=== PATIENT | female | born 1940 | race Hispanic/Latino ===

== ENCOUNTER 2018-07-07 17:03 | Emergency (ER) | payer BC ==
[2018-07-07 17:04] VITALS: BMI 31.8
[2018-07-07 17:50] VITALS: RESP 18; TEMP 97.8
--- NOTE | 2018-07-07 18:24 | ED PDOC ---
Arrival/HPI - General Chief Complaint: Lower Extremity Problem/Injury Time Seen by Provider: 07/07/18 18:21 Historian: Patient - History of Present Illness Narrative History of Present Illness (Text): 07/07/18 18:22 77 f with hx htn and hld presents to the ED with acute bleeding of the left lower anterior leg after sustaining a scratch. Patient reports that the blood was "squirting" and she has experienced something similar in the past. Patient denies any other injury. Event occurred today at approx 430p. Past Medical History - Provider Review Nursing Documentation Reviewed: Yes - Infectious Disease Hx of Infectious Diseases: None - Cardiac Hx Cardiac Disorders: Yes Hx Hypertension: Yes - Pulmonary Hx Respiratory Disorders: No - Neurological Hx Neurological Disorder: No - HEENT Hx HEENT Disorder: No - Renal Hx Renal Disorder: No - Endocrine/Metabolic Hx Endocrine Disorders: No - Hematological/Oncological Hx Blood Disorders: No - Integumentary Hx Dermatological Disorder: No - Musculoskeletal/Rheumatological Hx Musculoskeletal Disorders: Yes - Gastrointestinal Hx Gastrointestinal Disorders: No - Genitourinary/Gynecological Hx Genitourinary Disorders: No - Psychiatric Hx Psychophysiologic Disorder: No Hx Physical Abuse: No Hx Substance Use: No - Anesthesia Hx Anesthesia Reactions: No Hx Malignant Hyperthermia: No - Suicidal Assessment Feels Threatened In Home Enviroment: No Family/Social History - Physician Review Nursing Documentation Reviewed: Yes Family/Social History: No Known Family HX Smoking Status: Never Smoked Hx Alcohol Use: No Hx Substance Use: No Allergies/Home Meds Allergies/Adverse Reactions: Allergies No Known Allergies Allergy (Verified 07/07/18 17:43) Home Medications: Home Meds Medication Instructions Recorded Confirmed No Known Home Med 10/17/15 10/18/15 Review of Systems - Physician Review All systems were reviewed & negative as marked: Yes - Review of Systems Constitutional: absent: Other (no other notable injuries) Skin: Other (+ bleeding) Physical Exam - Physical Exam Narrative Physical Exam (Text): 07/07/18 18:24 Gen: VS reviewed, alert, well developed, well nourished, nontoxic, mild distress ENT: normal pharynx Eye: EOMI, PERRL Neck: no JVD, supple, no adenopathy CV: regular rate, regular rhythm, no rubs,no murmur, no gallops, S1, S2, pulses equal and strong Pulm: no distress, clear to auscultation, no wheeze, no rhonchi, breath sounds equal, no rales Abd: soft, nontender, no guarding, no rebound, no rigidity, normal bowel sounds Ext: no edema Skin: good color, no rash, no cyanosis Psych: responds appropriately to questions, normal affect Neuro: oriented x3, CN2-12 intact grossly, motor intact, sensation intact Vital Signs Temp Pulse Resp BP Pulse Ox 07/07/18 17:38 97.8 F 76 18 138/78 95 Medical Decision Making ED Course and Treatment: 07/07/18 18:27 Impression: A 77 year old female with left lower anterior leg s/p scratch. Plan: -- Reassess and disposition Progress Notes: 07/07/18 19:48 wound was undressed and patient found to have a tiny bleeding ulcer overlying a varicose vein. patient reports that similiar event in the past where it was taken care of by surgeon. a single figure of 8 stitch was placed by myself and hemostasis obtained. 07/07/18 19:49 - Medication Orders Current Medication Orders: Discontinued Medications Lidocaine/Epinephrine (Lidocaine 1%/Epinephrine 1:[id number] 30 Ml) 10 ml IJ STAT STA Stop: 07/07/18 19:16 Procedure: Wound Repair - Time Performed Time Performed: 19:44 - Time Out Time Out: Side verified - Consent Obtained Consent obtained: Verbal - Performed by Performed by: Attending Physician - Indications Indication(s):: Other (Bleeding Varicose Vein) - Location Location:: Left, Chin Shape:: Other (punctate lesion of the mid left lower leg) Dimensions Length cm: less than 1cm Depth:: Epidermis - Anesthetic Technique Anesthetic Technique: Local Local/Regional Anesthetic:: Lidocaine 1% w/epi - Debris Debris:: None - Complexity Complexity:: Simple (one layer) (a simple figure 8 stitch was placed and good hemostasis obtained. a 4-0 prolene suture was placed.) - Complications Complications: none - Patient tolerated procedure Patient Tolerated Procedure:: Well Disposition/Present on Arrival - Present on Arrival Any Indicators Present on Arrival: No History of DVT/PE: No History of Uncontrolled Diabetes: No Urinary Catheter: No History of Decub. Ulcer: No History Surgical Site Infection Following: None - Disposition Have Diagnosis and Disposition been Completed?: Yes Diagnosis: Varicose ulcer Disposition: HOME/ ROUTINE Disposition Time: 19:48 Patient Plan: Discharge Patient Problems: Current Active Problems Problem Status Onset Varicose ulcer Acute Condition: STABLE Discharge Instructions (ExitCare): Treatment of Varicose Veins of the Leg, Laceration Repair With Stitches (DC) Print Language: GERMAN Additional Instructions: Have the suture removed in 5-7 days. You may return to the ER to the suture removed or you may go to your surgeon to the stitch removed. KAYLA SHULTZ, thank you for letting us take care of you today. Your provider was Dr. Fly Red and you were treated for a small bleeding varicose vein ulcer. The emergency medical care you received today was directed at your acute symptoms. If you were prescribed any medication, please fill it and take as directed. It may take several days for your symptoms to resolve. Return to the Emergency Department if your symptoms worsen, do not improve, or if you have any other problems. Please contact your doctor or call one of the physicians/clinics you have been referred to that are listed on the Patient Visit Information form that is included in your discharge packet. Bring any paperwork you were given at discharge with you along with any medications you are taking to your follow up visit. Our treatment cannot replace ongoing medical care by a primary care provider outside of the emergency department. Thank you for allowing the [facility] team to be part of your care today. If you had an X-Ray or CT scan: A Radiologist will review the ED reading if any change in treatment is needed we will contact you. If you had a blood, urine, or wound culture: It will take several days for the results, if any change in treatment is needed we will contact you. If you had an STI test: It will take 48 hours for the results. Please call after 1 week if you have not heard back. Referrals: Rupal Beltrán MD [Primary Care Provider] - Follow up with primary Forms: [email or web address] (Macedonian)
[2018-07-07] MEDS ORDERED: Lidocaine 1%/Epinephrine 1:100000 30 ml vial IJ STA (19:15)
[2018-07-07 20:24] VITALS: BP 125/60; PULSE 66; O2SAT 97
== END 2018-07-07 20:30 | disposition home or self-care (01) ==
LOC: ED 17:03
DX: I83.92 Asymptomatic varicose veins of left lower extremity (principal); I10 Essential (primary) hypertension; E78.5 Hyperlipidemia, unspecified

== ENCOUNTER 2018-09-13 06:35 | Emergency (ER) | payer BC ==
[2018-09-13 06:35] VITALS: BMI 31.8
[2018-09-13 06:51] VITALS: BP 130/80; PULSE 86; RESP 17; TEMP 98
--- NOTE | 2018-09-13 07:10 | ED PDOC ---
Arrival/HPI - General Chief Complaint: Lower Extremity Problem/Injury Time Seen by Provider: 09/13/18 06:52 Historian: Patient - History of Present Illness Narrative History of Present Illness (Text): 09/13/18 07:06 78 year old female, whose past medical history includes varicose veins and hyperlipidemia, presenting to the emergency department complaining of bleeding from a scratch on the left lower anterior leg which she noticed yesterday. Patient reports she had a similar presentation on 07/07/18 where she reports a stitch was placed. She states she was sent here yesterday to have her MRI of her foot performed where the commercial hvac technician noted the active bleeding. Patient reports continued bleeding despite attempted direct pressure and compressive dressings and decided to come in for evaluation. She reports she is seeing Dr. Junior(surgeon) for her varicose veins. Patient denies any fever, chills, chest pain, shortness of breath, nausea, vomiting, diarrhea, back pain, neck pain, headache, dizziness, or any other complaints. PMD: Dr. Beltrán Time/Duration: 24 hours Symptom Onset: Sudden Symptom Course: Improving Activities at Onset: Rest Context: Home Past Medical History - Provider Review Nursing Documentation Reviewed: Yes - Travel History Have you recently traveled outside [place] w/in the past 3 mons?: No - Infectious Disease Hx of Infectious Diseases: None - Cardiac Hx Cardiac Disorders: Yes Hx Hypertension: Yes - Pulmonary Hx Respiratory Disorders: No - Neurological Hx Neurological Disorder: No - HEENT Hx HEENT Disorder: No - Renal Hx Renal Disorder: No - Endocrine/Metabolic Hx Endocrine Disorders: No - Hematological/Oncological Hx Blood Disorders: No Other/Comment: as per pt "thrombocytopenia". - Integumentary Hx Dermatological Disorder: No - Musculoskeletal/Rheumatological Hx Musculoskeletal Disorders: Yes - Gastrointestinal Hx Gastrointestinal Disorders: No - Genitourinary/Gynecological Hx Genitourinary Disorders: No - Psychiatric Hx Psychophysiologic Disorder: No Hx Physical Abuse: No Hx Substance Use: No - Anesthesia Hx Anesthesia: No Hx Anesthesia Reactions: No Hx Malignant Hyperthermia: No - Suicidal Assessment Feels Threatened In Home Enviroment: No Family/Social History - Physician Review Nursing Documentation Reviewed: Yes Family/Social History: No Known Family HX Smoking Status: Never Smoked Hx Alcohol Use: No Hx Substance Use: No Allergies/Home Meds Allergies/Adverse Reactions: Allergies No Known Allergies Allergy (Verified 09/13/18 06:48) Home Medications: Home Meds Medication Instructions Recorded Confirmed No Known Home Med 10/17/15 09/13/18 Review of Systems - Physician Review All systems were reviewed & negative as marked: Yes - Review of Systems Constitutional: absent: Fevers, Other (Chills) Respiratory: absent: SOB Cardiovascular: absent: Chest Pain Gastrointestinal: absent: Abdominal Pain, Diarrhea, Nausea, Vomiting Musculoskeletal: absent: Back Pain, Neck Pain Skin: Other (scratch to the left lower leg) Neurological: absent: Headache, Dizziness Physical Exam Vital Signs Reviewed: Yes Vital Signs Temp Pulse Resp BP Pulse Ox 09/13/18 06:50 98.0 F 86 17 130/80 98 Temperature: Afebrile Blood Pressure: Normal Pulse: Regular Respiratory Rate: Normal Appearance: Positive for: Well-Appearing, Non-Toxic, Comfortable Pain Distress: None Mental Status: Positive for: Alert and Oriented X 3 - Systems Exam Head: Present: Atraumatic, Normocephalic Pupils: Present: PERRL Extroacular Muscles: Present: EOMI Conjunctiva: Present: Normal Mouth: Present: Moist Mucous Membranes Upper Extremity: Present: Normal Inspection. No: Cyanosis, Edema Lower Extremity: Present: Tenderness (minimal tenderness to palpation on left anterior pacheco), Other (Puncture congeial blood on left anterior pacheco. No active bleeding noted to site. No ecchymosis noted around lesion). No: Edema (Calf edema) Neurological: Present: GCS=15, CN II-XII Intact, Speech Normal Skin: Present: Warm, Dry, Normal Color. No: Rashes Psychiatric: Present: Alert, Oriented x 3, Normal Insight, Normal Concentration Medical Decision Making ED Course and Treatment: 09/13/18 07:06 Impression: 78 year old female presents complaining of bleeding to a scratch on the left anterior pacheco that she noticed yesterday. No active bleeding currently. Plan: -- Antiseptic solution --Dressing Change -- Reassess and disposition Prior Visits: Notes and results from previous visits were reviewed. Progress Notes: 09/13/18 07:10 Area was cleaned and wrapped. There is no active bleeding to the site. Recommended patient to follow up with a vascular surgeon for further treatments. Patient in agreement with plan to be discharged home. - Scribe Statement The provider has reviewed the documentation as recorded by the Radhaibe Eros Garcia Provider Scribe Attestation: All medical record entries made by the Scribe were at my direction and personally dictated by me. I have reviewed the chart and agree that the record accurately reflects my personal performance of the history, physical exam, medical decision making, and the department course for this patient. I have also personally directed, reviewed, and agree with the discharge instructions and disposition. Disposition/Present on Arrival - Present on Arrival Any Indicators Present on Arrival: No History of DVT/PE: No History of Uncontrolled Diabetes: No Urinary Catheter: No History of Decub. Ulcer: No History Surgical Site Infection Following: None - Disposition Have Diagnosis and Disposition been Completed?: Yes Diagnosis: Abrasion of leg Disposition: HOME/ ROUTINE Disposition Time: 07:13 Patient Plan: Discharge Patient Problems: Current Active Problems Problem Status Onset Abrasion of leg Acute Condition: STABLE Discharge Instructions (ExitCare): Skin Abrasions (DC) Print Language: [email or web address] Additional Instructions: All medical record entries made by the Scribe were at my direction and personally dictated by me. I have reviewed the chart and agree that the record accurately reflects my personal performance of the history, physical exam, medical decision making, and the department course for this patient. I have also personally directed, reviewed, and agree with the discharge instructions and disposition. Please change dressings daily and follow up with the vascular surgeon Return to the Emergency Department or nearest Urgent Care Center if leg starts t o bleed again. Referrals: Case Washington MD [Staff Provider] - Follow up with primary Carlitos Santos MD [Non-Staff] - Follow up with primary Forms: [employer] (Afghan)
[2018-09-13 07:35] VITALS: O2SAT 99
== END 2018-09-13 07:36 | disposition home or self-care (01) ==
LOC: ED 06:35
DX: S80.812A Abrasion, left lower leg, initial encounter (principal); X58.XXXA Exposure to other specified factors, initial encounter; Y92.9 Unspecified place or not applicable